=== PATIENT | male | born 1955 | race Caucasian/White ===

== ENCOUNTER 2024-12-30 21:56 | Emergency (ER) | payer MEDICARE, BC, SELFPAY ==
[2024-12-30 21:57] VITALS: BMI 26.1
[2024-12-30 23:39] VITALS: BP 165/91; PULSE 73; RESP 18; TEMP 36.5; O2SAT 98
--- NOTE | 2024-12-30 23:43 | XR_ITS ---
Examination: CT abdomen and pelvis without contrast. Coronal 3-D reconstructions. Sagittal 2-D reconstructions. Date and time of exam:December 31, 2024 0001 hrs. Indications: Left lower abdominal pain and vomiting today CTDI: vol (mGy): 9.26 DLP: (mGycm): 598 Technique: Axial images of the abdomen have been obtained, 3 mm slice thickness Intravenous contrast material has not been administered. Low dose protocols were performed. One or more of the following dose reduction techniques were used; automated exposure control, adjustment of the mA and/or KV according to patient size, use of iterative reconstruction technique. Findings: 13 mm left lobe liver lesion Contracted gallbladder No splenic or pancreatic mass Mild nodular thickening right adrenal gland Moderate renal parenchymal scar formation Mild left hydronephrosis secondary to 5 mm distal left ureteral calculus Aorta normal size Normal appendix No bowel obstruction Normal seminal vesicles Transverse prostate dimension 4.2 cm No bladder mass Diffuse [id number] lumbar disc narrowing Impression: 13 mm left lobe liver lesion, recommend MRI abdomen liver follow-up pre and postcontrast Mild right hydronephrosis, 5 mm distal left ureteral calculus
--- NOTE | 2024-12-30 23:44 | PD.EDRME ---
Rapid Medical Screening Exam RME Arrival date/time: 12/30/24 21:56 69-year-old male presents emergency department complaining of left lower quadrant pain with vomiting that started earlier today. Chief Complaint: Abdominal Pain Time Seen by Provider: 12/30/24 22:57 Vital signs: Vital Signs Temperature 97.7 F 12/30/24 23:39 Pulse Rate 73 12/30/24 23:39 Respiratory Rate 18 12/30/24 23:39 Blood Pressure 165/91 H 12/30/24 23:39 Pulse Oximetry (%) 98 12/30/24 23:39 Oxygen Delivery Method Room Air 12/30/24 23:39 Vital signs reviewed by provider: Yes
[2024-12-30] MEDS: ONDANSETRON ODT 4 MG TABRAP PO (23:55)
[2024-12-30] MEDS: KETOROLAC INJ 60 MG/2 ML VIAL 30 MG IM (23:55)
[2024-12-30 23:59] LABS: Basophils # (Auto) 0.1 Thou/mm3 (0.0-0.2); Basophils % (Auto) 1 % (0-2.5); Eosinophils # (Auto) 0.3 Thou/mm3 (0.0-0.5); Eosinophils % (Auto) 2 % (0-10); Hematocrit 41.4 % (41.0-53.0); Hemoglobin 13.9 g/dL (13.5-16.0); Immature Granulocytes % (Auto) 1 % (0-0); Immature Granulocytes Auto 0.08 Thou/mm3 (0.00-0.00); Lymphocytes # (Auto) 1.7 Thou/mm3 (1.0-4.8); Lymphocytes % (Auto) 12 % (10-50); Mean Corpuscular HGB Conc 33.6 g/dl (31.0-37.0); Mean Corpuscular Hemoglobin 30.5 pg (25.0-35.0); Mean Corpuscular Volume 91 fL (80-100); Monocytes % (Auto) 7 % (0-12); Neutrophils # (Auto) 11.8 Thou/mm3 (1.8-7.7); Neutrophils % (Auto) 79 % (37-80); Nucleated Red Blood Cell % 0 /100 WBC (0); Platelet Count 223 Thou/mm3 (140-440); RDW Standard Deviation 42.6 fL (35.1-43.9); Red Blood Count 4.55 Miln/mm3 (4.50-5.90)
[2024-12-31 00:43] LABS: Alanine Aminotransferase 27 U/L (10-49); Albumin, Serum 4.4 gm/dL (3.4-4.8); Albumin/Globulin Ratio 1.8 (1.2-2.2); Alkaline Phosphatase 65 U/L (46-116); Anion Gap 9 (7-16); Aspartate Amino Transferase 20 U/L (0-34); BUN/Creatinine Ratio 16 Ratio (12-20); Bilirubin,Total 0.3 mg/dL (0.3-1.2); Blood Urea Nitrogen 26 mg/dL (9-23); Calcium 10.2 mg/dL (8.3-10.6); Calcium (Corrected) 10.2 mg/dL (8.5-10.1); Carbon Dioxide 25.2 mMol/L (20.0-31.0); Chloride 111 mMol/L (98-107); Creatinine (Component) 1.6 mg/dL (0.6-1.3); Estimated Creatinine Clearance 54.1 mL/min (>60); Globulin 2.5 gm/dL (2.3-3.5); Glucose 163 mg/dL (74-106); Lipase 58 U/L (12-53); Magnesium 2.2 mg/dL (1.6-2.6); Osmolality,Calculated 297 (275-295); Potassium 4.3 mMol/L (3.4-5.1); Sodium 145 mMol/L (136-145); Total Protein 6.9 gm/dL (5.7-8.2); eGFR 46 See Note
--- NOTE | 2024-12-31 00:47 | PRELIM_ITS ---
CT scan of the abdomen and pelvis without intravenous contrast (axial sections with sagittal and coronal reformats) December 31, 2024 at 0001 hours Clinical History: Left lower quadrant pain with vomiting. Comparison: None. Findings: The lung bases are clear. The gallbladder, pancreas, spleen, and adrenals are unremarkable on this noncontrast study. Hypodense lesion in the left liver lobe measures 1.2 cm. Left distal ureteral stone measuring 0.5 cm, the stone is not visible on the family service counselor image, the stone is about 2.0 cm from the UVJ, mild left hydroureteronephrosis. Nonobstructing left kidney stone. No evidence of bowel obstruction. The appendix is within normal limits. There is no mesenteric or retroperitoneal adenopathy. The urinary bladder is unremarkable. There is no free fluid or free air. Degenerative changes of the imaged portions of the spine. No acute fractures. Vascular calcifications. Diverticulosis of the colon. Impression: 1. Left ureter stone associated with hydroureteronephrosis. 2. Nonobstructing left nephrolithiasis. 3. Hypodense liver lesion, consider follow-up with MRI for characterization. Report Electronically Signed By: Gino Valencia 12/31/2024 12:46:30 AM [EST]
--- NOTE | 2024-12-31 01:34 | PD.EDABDPN ---
ED Abdominal Pain RME/HPI General Chief Complaint: Abdominal Pain Stated complaint: LLQ PAIN X2DAYS/ VOMITING Time seen by provider: 12/30/24 22:57 Arrival date/time: 12/30/24 21:56 RME / HPI RME / HPI narrative: 12/30/24 21:56 69-year-old male presents emergency department complaining of left lower quadrant pain with vomiting that started earlier today. ------- Dr. Mendoza?s Main ED Evaluation: 69yo male presents to the ED for a chief complaint of LLQ pain x today. No radiation or migration. Patient states he started having severe LLQ pain tonight, reporting he's had multiple associated nonbloody emetic episodes, so he came in for evaluation. He denies any fever, chills, back pain, hematuria, diarrhea, constipation or any other associated symptoms. He denies any history of similar symptoms. Denies any history of kidney stones. No known allergies. Related Data Home Medications ?Medication ?Instructions ?Recorded ?Confirmed aspirin 325 mg tablet 325 mg PO QDAY 07/28/24 07/28/24 atorvastatin 10 mg tablet 20 mg PO QDAY 07/28/24 07/28/24 bupropion HCl 300 mg 24 hr tablet, 300 mg PO QDAY 07/28/24 07/28/24 extended release escitalopram oxalate 10 mg tablet 15 mg PO QDAY 07/28/24 07/28/24 evolocumab 420 mg/3.5 mL 420 mg subcut QMONTH 07/28/24 07/28/24 subcutaneous wearable injector (Repatha Pushtronex) finasteride 5 mg tablet 5 mg PO QDAY 07/28/24 07/28/24 Previous Rx's ?Medication ?Instructions ?Recorded hydrocodone 5 mg-acetaminophen 325 1 tab PO Q4H PRN pain #14 tabs 12/31/24 mg tablet ibuprofen 600 mg tablet 600 mg PO Q6H PRN pain 5 days #20 12/31/24 tabs ondansetron 4 mg disintegrating 4 mg PO Q6H PRN nausea and 12/31/24 tablet vomiting #14 tabs Allergies Allergy/AdvReac Type Severity Reaction Status Date / Time No Known Allergies Allergy Verified 07/28/24 07:54 Review of Systems Review of Systems Systems Reviewed: All systems reviewed, normal except as documented Past Medical History Past Medical History NEUROLOGIC: Negative Neurological Disorders or Seizures CARDIAC: Positive Cardiac Disorders, Myocardial Infarction and Hypercholesterolemia; Negative Congestive Heart Failure RESPIRATORY: Negative Chronic Obstructive Pulmonary Disease (COPD) GASTROINTESTINAL: Positive Gastrointestinal Disorders GENITOURINARY: Negative Genitourinary Disorders or Renal Disease MUSCULOSKELETAL: Negative Musculoskeletal Disorders ENDOCRINE: Negative Endocrine Disorders, Diabetes Mellitus Type 1 or Diabetes Mellitus Type 2 HEMATOLOGIC: Negative Anemia or Clotting Problems PSYCHO/SOCIAL: Positive Depression OTHER HISTORY: Positive Chicken Pox; Negative Blood Transfusions, Anesthesia Reactions or Cancer Surgical History SURGICAL: Positive Eye Surgery (left eye orbital) Social History SMOKING STATUS: Never smoker ED Exam Narrative Physical exam: GENERAL APPEARANCE: alert and oriented x 4, well-developed, well-nourished, no acute distress VITALS: All vitals were reviewed and the pulse ox is 98% on room air, which is normal according to my interpretation. HEENT: Normocephalic, atraumatic; pupils equal, round, reactive to light; EOMI; mucous membranes pink, moist; oropharynx clear NECK: Supple LUNGS: CTABL; no wheezes, no rales, no rhonchi HEART: Regular rate, regular rhythm; normal S1, S2; no murmurs ABDOMEN: non distended; normal BS; soft, LLQ tenderness, no guarding, no rebound; no masses, no organomegaly, no hernia BACK: severe left CVA tenderness EXTREMITIES: atraumatic; no edema NEUROLOGIC: awake; alert and oriented x4; cranial nerves II-XII grossly intact; no focal sensory or motor deficits PSYCHIATRIC: appropriate mood and affect SKIN: warm, dry, normal color; no rashes Course Quality Measures none Orders Category Date Time Status CT abdomen pelvis wo con Stat Exams 12/30/24 23:43 Completed CBC Stat Lab 12/30/24 23:47 Completed CMP [Comprehensive Metabolic Panel] Stat Lab 12/30/24 23:47 Completed Lipase Stat Lab 12/30/24 23:47 Completed Magnesium Stat Lab 12/30/24 23:47 Completed Acetaminophen Tab [Tylenol ES Tab] Med 12/31/24 01:35 Discontinued 1,000 mg PO X1 ONE HYDROmorphone INJ [Dilaudid Inj] Med 12/31/24 01:35 Discontinued 1 mg IM X1 ONE Ketorolac Inj [Toradol Inj] Med 12/30/24 23:44 Discontinued 30 mg IM X1 ONE Ondansetron Odt [Zofran Odt] Med 12/30/24 23:43 Discontinued 4 mg PO X1 ONE Vital Signs Vital signs: Vital Signs Temperature 97.7 F 12/30/24 23:39 Pulse Rate 73 12/30/24 23:39 Respiratory Rate 18 12/30/24 23:39 Blood Pressure 165/91 H 12/30/24 23:39 Pulse Oximetry (%) 98 12/30/24 23:39 Oxygen Delivery Method Room Air 12/30/24 23:39 Abdominal Pain MDM MDM Narrative MDM Narrative:: Scribe Attestation: 12/31/24 - Maddison Gracia am scribing for and in the presence of Dr. Mendoza. Patient data External records reviewed:: [facility] previous records (Per chart review, patient has no previous ED visits to this facility.) Clinical information provided by:: patient Social determinants that could affect healthcare access:: none Patient has the following chronic illnesses:: HLD How is presenting disease/condition affected by chronic disease/condition?: uneffected by Evaluation data The following diagnostics were reviewed and interpreted by me:: lab results and radiology exam(s) Lab and/or radiology exams considered but not ordered:: none Interpretation Summary: WBC count is elevated 15.0, Creatinine is 1.6, Glucose is 163, Lipase is 58, according to my interpretation. ------- [facility] Preliminary Report Draft Patient: STACY MONTOYA. Record#: [id number] Birthdate: 1955 Age/Sex: 69 / M Location: [facility] Attending Dr: Ordering Physician: Date of Service: Procedure(s): Accession Number(s): cc: ~ CT scan of the abdomen and pelvis without intravenous contrast (axial sections with sagittal and coronal reformats) December 31, 2024 at 0001 hours Clinical History: Left lower quadrant pain with vomiting. Comparison: None. Findings: The lung bases are clear. The gallbladder, pancreas, spleen, and adrenals are unremarkable on this noncontrast study. Hypodense lesion in the left liver lobe measures 1.2 cm. Left distal ureteral stone measuring 0.5 cm, the stone is not visible on the rural carrier image, the stone is about 2.0 cm from the UVJ, mild left hydroureteronephrosis. Nonobstructing left kidney stone. No evidence of bowel obstruction. The appendix is within normal limits. There is no mesenteric or retroperitoneal adenopathy. The urinary bladder is unremarkable. There is no free fluid or free air. Degenerative changes of the imaged portions of the spine. No acute fractures. Vascular calcifications. Diverticulosis of the colon. Impression: 1. Left ureter stone associated with hydroureteronephrosis. 2. Nonobstructing left nephrolithiasis. 3. Hypodense liver lesion, consider follow-up with MRI for characterization. Report Electronically Signed By: Gino Valencia 12/31/2024 12:46:30 AM Medications / Prescriptions Medications or Prescriptions considered but not ordered:: none Medication administrations:: Medication Administration History Discontinued Medications Acetaminophen (Acetaminophen 500 Mg Tablet) 1,000 mg PO X1 ONE Stop: 12/31/24 01:36 Last Admin: 12/31/24 01:52 Dose: 1,000 mg Documented By: SE Hydromorphone HCl (Hydromorphone Inj 2 Mg/Ml Vial) 1 mg IM X1 ONE Stop: 12/31/24 01:36 Last Admin: 12/31/24 01:53 Dose: 1 mg Documented By: SE Ketorolac Tromethamine (Ketorolac Inj 60 Mg/2 Ml Vial) 30 mg IM X1 ONE Stop: 12/30/24 23:45 Last Admin: 12/30/24 23:55 Dose: 30 mg Documented By: KG Ondansetron HCl (Ondansetron Odt 4 Mg Tabrap) 4 mg PO X1 ONE; Protocol Stop: 12/30/24 23:44 Last Admin: 12/30/24 23:55 Dose: 4 mg Documented By: KG see above Consultations Consultation(s) initiated? (list below): No Diagnosis Differential diagnosis abdominal pain: diverticulitis and other (kidney stone, pyelonephritis, musculoskeletal pain) Most likely diagnosis given after review of the tests above:: see below Admission Indicated Admission indicated?: not indicated Explain why admission is indicated or not indicated:: No criteria for admission. Admission Request Was there a request for admission?: No Disposition Plan Disposition Plan: Discharge Discharge Attestation Discharge Attestation: The patient and all family members were given an opportunity to ask questions and understood the discharge instructions. Discharge instructions specifically effects, indications for sooner follow up or return to the emergency department, and the expected course of current diagnosis. Patient condition: Stable Discharge Plan Plan Patient Disposition: HOME (Self Care) Disposition Comment: Stable for discharge Patient condition on transfer: Stable Prescriptions/Referrals Prescriptions/Med Rec: New ibuprofen 600 mg tablet 600 mg PO Q6H PRN (Reason: pain) 5 Days Qty: 20 0RF hydrocodone-acetaminophen 5-325 mg tablet 1 tab PO Q4H MDD 6 tabs PRN (Reason: pain) Qty: 14 0RF ondansetron 4 mg tablet,disintegrating 4 mg PO Q6H PRN (Reason: nausea and vomiting) Qty: 14 0RF No Action atorvastatin 10 mg tablet 20 mg PO QDAY Patient Comments: TAKE 1 TABLET BY MOUTH EVERY DAY aspirin 325 mg Tablet 325 mg PO QDAY finasteride 5 mg tablet 5 mg PO QDAY Patient Comments: TAKE 1 TABLET BY MOUTH EVERY DAY escitalopram oxalate 10 mg tablet 15 mg PO QDAY Patient Comments: TAKE 1 TABLET BY MOUTH EVERY DAY IN THE MORNING bupropion HCl 300 mg tablet extended release 24 hr 300 mg PO QDAY Patient Comments: TAKE 1 TABLET BY MOUTH EVERY DAY IN THE MORNING Repatha Pushtronex 420 mg/3.5 mL wearable injector 420 mg SUBCUT QMONTH Patient Comments: INJECT 420 MG UNDER THE SKIN ONCE A MONTH 84 Referrals: Marquis Reich [Primary Care Provider] - In 1 week Problem List Clinical Impression: Renal colic Patient/Caregiver Discharge Instructions Discharge Activity: activity as tolerated Education Materials: Anatomy of the Male Urinary Tract, ED Kidney Stone w/ Colic Additional Instructions: Please return to the emergency department if you have any worsening or any further medical problems. Otherwise you should follow-up with your primary care doctor within the next several days. Please mention to your primary care doctor that the emergency doctor said you should follow-up with a urologist within the next week or so Please remember that if your pain gets too severe at home or if you are worsening that you are more than welcome to return to the ER Print Language: Pakistani Stand Alone Forms: Bridgette Award Info., Patient Portal Info Letter
[2024-12-31] MEDS: ACETAMINOPHEN 500 MG TABLET 1000 MG PO (01:52)
[2024-12-31] MEDS: HYDROmorphone INJ 2 MG/ML VIAL 1 MG IM (01:53)
== END 2024-12-31 02:07 | disposition home or self-care (01) ==
PROVIDERS: Emergency Provider Emergency Medicine; PCP Internal Medicine
DX: N23 Unspecified renal colic (principal)
CPT/HCPCS: 36415; 74176; 80053; 81001; 83690; 83735; 85025; 96372; 99284; J1885; J3490; Q0162; A9270

== ENCOUNTER → 2025-01-01 | Outpatient (CLI) | payer MEDICARE, BC, SELFPAY | END | disposition home or self-care (01) | LOC: SLDO 15:16 | PROVIDERS: PCP Family Medicine; Referring Provider Family Medicine; Visit Provider Family Medicine | DX: N39.0 Urinary tract infection, site not specified (principal) | CPT/HCPCS: 87086 ==

== ENCOUNTER → 2025-01-22 | Outpatient (CLI) | payer MEDICARE, BC, SELFPAY ==
[2025-01-22 15:23] LABS: Alanine Aminotransferase 31 U/L (10-49); Albumin, Serum 4.4 gm/dL (3.4-4.8); Albumin/Globulin Ratio 2.2 (1.2-2.2); Alkaline Phosphatase 58 U/L (46-116); Anion Gap 9 (7-16); Aspartate Amino Transferase 10 U/L (0-34); BUN/Creatinine Ratio 16 Ratio (12-20); Bilirubin,Total 0.4 mg/dL (0.3-1.2); Blood Urea Nitrogen 22 mg/dL (9-23); Calcium 9.6 mg/dL (8.3-10.6); Calcium (Corrected) 9.6 mg/dL (8.5-10.1); Carbon Dioxide 27.6 mMol/L (20.0-31.0); Chloride 105 mMol/L (98-107); Creatinine (Component) 1.4 mg/dL (0.6-1.3); Glucose 93 mg/dL (74-106); Osmolality,Calculated 286 (275-295); Potassium 4.5 mMol/L (3.4-5.1); Sodium 142 mMol/L (136-145); Total Protein 6.4 gm/dL (5.7-8.2); eGFR 54 See Note
== END | disposition home or self-care (01) ==
LOC: COPL 13:52
PROVIDERS: PCP Nurse Practitioner Family; Referring Provider Nurse Practitioner Family; Visit Provider Nurse Practitioner Family
DX: N20.1 Calculus of ureter (principal); R93.2 Abnormal findings on diagnostic imaging of liver and biliary tract
CPT/HCPCS: 36415; 80053

== ENCOUNTER → 2025-02-10 | Outpatient (CLI) | payer MEDICARE, BC, SELFPAY ==
--- NOTE | 2025-02-10 09:00 | XR_ITS ---
Examination: MRI abdomen with intravenous contrast. MRI abdomen without intravenous contrast. Date and time of exam: February 10, 2025 1014 hours INDICATIONS: Left-sided abdominal pain, 13 mm left lobe liver lesion on CT abdomen study December 31, 2024 Technique: Multiple axial, sagittal and coronal sections of the abdomen obtained. Transverse images, TR 6020, TE 107. T1 weighted transverse images, TR 582, TE 9.5. T2-weighted sagittal images, TR 4000, TE 105. T2-weighted sagittal images, TR 4000, TE 5. Coronal images, TR 4210, TE 107. Axial and coronal images are obtained post 3 cc intravenous injection, gadolinium. Findings: 11 mm left lobe liver lesion with increased signal on the precontrast T2-weighted images Postcontrast images demonstrate no abnormal enhancement of this liver mass No gallstones No pancreatic or adrenal mass No current hydronephrosis Aorta normal size IMPRESSION: 11 mm nonenhancing left lobe liver lesion, consider liver cyst, hemangioma Recommend 6 month follow-up hepatic sonography
== END | disposition home or self-care (01) ==
LOC: SMRI 08:25
PROVIDERS: Referring Provider Student in an Organized Health Care Education/Training Program; Visit Provider Student in an Organized Health Care Education/Training Program
DX: K76.9 Liver disease, unspecified (principal)
CPT/HCPCS: 74183; A9579

== ENCOUNTER → 2025-02-13 | Outpatient (CLI) | payer MEDICARE, BC, SELFPAY ==
[2025-02-13 07:49] LABS: Collection Type, Urine Clean Catch; Squamous Epithelial Cell,Urine 0 /hpf (0-5)
[2025-02-13 08:33] LABS: Basophils # (Auto) 0.1 Thou/mm3 (0.0-0.2); Basophils % (Auto) 1 % (0-2.5); Eosinophils # (Auto) 0.3 Thou/mm3 (0.0-0.5); Eosinophils % (Auto) 7 % (0-10); Hematocrit 44.1 % (41.0-53.0); Hemoglobin 14.5 g/dL (13.5-16.0); Immature Granulocytes % (Auto) 0 % (0-0); Immature Granulocytes Auto 0.02 Thou/mm3 (0.00-0.00); Lymphocytes # (Auto) 1.5 Thou/mm3 (1.0-4.8); Lymphocytes % (Auto) 29 % (10-50); Mean Corpuscular HGB Conc 32.9 g/dl (31.0-37.0); Mean Corpuscular Hemoglobin 30.1 pg (25.0-35.0); Mean Corpuscular Volume 92 fL (80-100); Monocytes # (Auto) 0.5 Thou/mm3 (0.0-0.8); Monocytes % (Auto) 10 % (0-12); Neutrophils # (Auto) 2.6 Thou/mm3 (1.8-7.7); Neutrophils % (Auto) 53 % (37-80); Nucleated Red Blood Cell % 0 /100 WBC (0); Platelet Count 246 Thou/mm3 (140-440); RDW Standard Deviation 42.9 fL (35.1-43.9); Red Blood Count 4.82 Miln/mm3 (4.50-5.90)
[2025-02-13 08:39] LABS: Bilirubin,Urine Negative (Negative); Blood,Urine Negative (Negative); Clarity,Urine Clear (Clear/Hazy); Color,Urine Lt-Yellow (Lt Yel-Yel); Glucose, Urine Negative (Negative); Ketones,Urine Negative (Negative); Leukocyte Esterase,Urine Negative (Negative); Nitrite,Urine Negative (Negative); Protein,Urine Negative (Neg - Trace); RBC,Urine 2 /hpf (0-3); Specific Gravity,Urine 1.018 (1.001-1.035); Urobilinogen,Urine Negative mg/dL (0.0-1.0); WBC,Urine 1 /hpf (0-5)
[2025-02-13 08:43] LABS: Albumin, Serum 4.4 gm/dL (3.4-4.8); Anion Gap 8 (7-16); BUN/Creatinine Ratio 13 Ratio (12-20); Blood Urea Nitrogen 19 mg/dL (9-23); Calcium 9.3 mg/dL (8.3-10.6); Calcium (Corrected) 9.3 mg/dL (8.5-10.1); Carbon Dioxide 28.1 mMol/L (20.0-31.0); Chloride 107 mMol/L (98-107); Creatinine (Component) 1.5 mg/dL (0.6-1.3); Glucose 98 mg/dL (74-106); Osmolality,Calculated 287 (275-295); Phosphorous 2.7 mg/dL (2.4-5.1); Potassium 4.3 mMol/L (3.4-5.1); Sodium 143 mMol/L (136-145); eGFR 50 See Note
[2025-02-13 08:50] LABS: Creatinine MALB Rnd Ur 122 mg/dL (30-125); Microalbumin Creat Ratio 7 mg/gCrea (<30); Microalbumin, Random Urine 9 mg/L (0-300)
[2025-02-13 08:50] LABS: Vitamin D 25 Hydroxy Total 49.6 ng/mL (7.3-40.2)
[2025-02-13 08:58] LABS: Parathyroid Hormone Intact 34.8 pg/ml (18.5-88.0)
== END | disposition home or self-care (01) ==
LOC: COPL 06:51
PROVIDERS: PCP Student in an Organized Health Care Education/Training Program; Referring Provider Internal Medicine; Visit Provider Internal Medicine
DX: N18.30 Chronic kidney disease, stage 3 unspecified (principal); E78.5 Hyperlipidemia, unspecified; N20.0 Calculus of kidney; E55.9 Vitamin D deficiency, unspecified
CPT/HCPCS: 36415; 80069; 81001; 82043; 82306; 82570; 83970; 85025

== ENCOUNTER → 2025-02-20 | Outpatient (CLI) | payer MEDICARE, BC, SELFPAY ==
--- NOTE | 2025-02-20 13:00 | XR_ITS ---
Examination: Retroperitoneal ultrasound, complete Technique: Multiple high resolution grayscale images of the retroperitoneum obtained, including kidneys and bladder. Exam date and time:February 20, 2025 1310 hrs. Indications: Acute kidney failure on laboratory examination February 13, 2025 Findings: Right kidney 12.6 cm renal cortex 1.7 cm Left kidney 11.5 cm cortex 2.0 cm Moderate bilateral parenchymal scar formation No bladder mass or bladder calculi Bladder prevoid volume 653 cc No prostatomegaly no prostate nodules Impression: Moderate bilateral renal parenchymal scar formation No hydronephrosis
== END | disposition home or self-care (01) ==
LOC: CDIM 12:39
PROVIDERS: PCP Family Medicine; Referring Provider Internal Medicine; Visit Provider Internal Medicine
DX: N28.89 Other specified disorders of kidney and ureter (principal)
CPT/HCPCS: 76770

== ENCOUNTER → 2025-04-30 | Outpatient (BNVA) | payer MEDICARE, BC, SELFPAY | END | disposition home or self-care (01) | PROVIDERS: PCP Family Medicine; Referring Provider Family Medicine; Visit Provider Urology | DX: N40.1 Benign prostatic hyperplasia with lower urinary tract symptoms (principal); N13.8 Other obstructive and reflux uropathy; R35.0 Frequency of micturition; R39.198 Other difficulties with micturition; N18.2 Chronic kidney disease, stage 2 (mild); E66.9 Obesity, unspecified; Z68.25 Body mass index [BMI] 25.0-25.9, adult; E78.00 Pure hypercholesterolemia, unspecified; I21.9 Acute myocardial infarction, unspecified | CPT/HCPCS: 81003; 99203; G0463 ==

== ENCOUNTER → 2025-04-30 | Outpatient (CLI) | payer MEDICARE, BC, SELFPAY ==
[2025-04-30 13:21] LABS: Prostate Specific Antigen 0.98 ng/mL (0-4.00)
== END | disposition home or self-care (01) ==
PROVIDERS: PCP Student in an Organized Health Care Education/Training Program; Referring Provider Urology; Visit Provider Urology
DX: R97.20 Elevated prostate specific antigen [PSA] (principal)
CPT/HCPCS: 36415; 84153

== ENCOUNTER → 2025-06-11 | Outpatient (CLI) | payer MEDICARE, BC, SELFPAY ==
[2025-06-11 07:59] LABS: Collection Type, Urine Clean Catch; Squamous Epithelial Cell,Urine 0 /hpf (0-5)
[2025-06-11 09:05] LABS: Bilirubin,Urine Negative (Negative); Blood,Urine Negative (Negative); Clarity,Urine Clear (Clear/Hazy); Color,Urine Yellow (Lt Yel-Yel); Glucose, Urine Negative (Negative); Ketones,Urine Negative (Negative); Leukocyte Esterase,Urine Negative (Negative); Nitrite,Urine Negative (Negative); PH,Urine 6.0 (5.0-7.0); Protein,Urine Negative (Neg - Trace); RBC,Urine 5 /hpf (0-3); Specific Gravity,Urine 1.028 (1.001-1.035); Urobilinogen,Urine Negative mg/dL (0.0-1.0); WBC,Urine 3 /hpf (0-5)
[2025-06-11 09:08] LABS: Albumin, Serum 4.3 gm/dL (3.4-4.8); Anion Gap 8 (7-16); BUN/Creatinine Ratio 13 Ratio (12-20); Blood Urea Nitrogen 20 mg/dL (9-23); Calcium 9.0 mg/dL (8.3-10.6); Calcium (Corrected) 9.0 mg/dL (8.5-10.1); Carbon Dioxide 27.2 mMol/L (20.0-31.0); Chloride 108 mMol/L (98-107); Creatinine (Component) 1.5 mg/dL (0.6-1.3); Glucose 100 mg/dL (74-106); Osmolality,Calculated 287 (275-295); Phosphorous 2.4 mg/dL (2.4-5.1); Potassium 4.2 mMol/L (3.4-5.1); Sodium 143 mMol/L (136-145); eGFR 49 See Note
== END | disposition home or self-care (01) ==
LOC: COPL 07:06
PROVIDERS: PCP Family Medicine; Referring Provider Internal Medicine; Visit Provider Internal Medicine
DX: I12.9 Hypertensive chronic kidney disease with stage 1 through stage 4 chronic kidney disease, or unspecified chronic kidney disease (principal); N18.30 Chronic kidney disease, stage 3 unspecified
CPT/HCPCS: 36415; 80069; 81001

== ENCOUNTER → 2025-08-06 | Outpatient (BNVA) | payer MEDICARE, BC, SELFPAY | END | disposition home or self-care (01) | PROVIDERS: PCP Student in an Organized Health Care Education/Training Program; Referring Provider Student in an Organized Health Care Education/Training Program; Visit Provider Urology | DX: N40.1 Benign prostatic hyperplasia with lower urinary tract symptoms (principal); R39.12 Poor urinary stream | CPT/HCPCS: 51741; 51798 ==

== ENCOUNTER → 2025-08-11 | Outpatient (BNVA) | payer MEDICARE, BC, SELFPAY | END | disposition home or self-care (01) | PROVIDERS: PCP Student in an Organized Health Care Education/Training Program; Referring Provider Student in an Organized Health Care Education/Training Program; Visit Provider Urology | DX: N40.1 Benign prostatic hyperplasia with lower urinary tract symptoms (principal); N13.8 Other obstructive and reflux uropathy; E78.00 Pure hypercholesterolemia, unspecified; I25.2 Old myocardial infarction | CPT/HCPCS: 76872 ==

== ENCOUNTER → 2025-09-16 | Outpatient (CLI) | payer MEDICARE, BC, SELFPAY ==
--- NOTE | 2025-09-16 11:45 | XR_ITS ---
Examination: Abdomen sonogram, Limited Date and time of exam: 09/16/2025, 11:40 a.m. INDICATION: Follow-up for nonenhancing left lower lobe lesion. COMPARISON: Abdominal MRI 02/10/2025. CT abdomen and pelvis 12/31/2024. Technique: Real-time painting scale transabdominal sonographic images of the upper abdomen obtained. Findings: The liver is measured at 17 cm in length. Demonstrates smooth contours and diffusely increased echotexture which is nonspecific but could represent hepatic steatosis. Redemonstration of a small cyst in the lateral segment of the left hepatic lobe, localizing to segment 2 as correlated with prior MRI and CT. This cyst is measured at 1.0 x 0.6 x 0.8 cm on this exam. MRI shows that there are very thin septations within the cyst which are not as well appreciated on this ultrasound. The MRI also shows 2 very small hemangiomas in the anterior portions of the medial and lateral segments of the left hepatic lobe that are not evident on the provided images. Color Doppler demonstrates patency of the main portal vein with normal hepatopetal flow. There is no evidence for abnormal bile duct dilatation. The common bile duct is measured at 4 mm in caliber. There is no evidence for gallstones, sludge, concerning gallbladder wall thickening or para cholecystic fluid. IMPRESSION: Redemonstration of small benign cyst in the lateral segment the left hepatic lobe. Probable mild diffuse hepatic steatosis. Ancillary findings/comments as above.
== END | disposition home or self-care (01) ==
PROVIDERS: PCP Family Medicine; Referring Provider Student in an Organized Health Care Education/Training Program; Visit Provider Student in an Organized Health Care Education/Training Program
DX: K76.89 Other specified diseases of liver (principal)
CPT/HCPCS: 76705

== ENCOUNTER → 2025-11-09 | Outpatient (CLI) | payer MEDICARE, BC, SELFPAY ==
[2025-11-09 08:07] LABS: Collection Type, Urine Clean Catch
[2025-11-09 08:33] LABS: Basophils # (Auto) 0.1 Thou/mm3 (0.0-0.2); Basophils % (Auto) 1 % (0-2.5); Eosinophils # (Auto) 0.5 Thou/mm3 (0.0-0.5); Eosinophils % (Auto) 7 % (0-10); Hematocrit 43.4 % (41.0-53.0); Hemoglobin 14.5 g/dL (13.5-16.0); Immature Granulocytes Auto 0.03 Thou/mm3 (0.00-0.00); Lymphocytes # (Auto) 1.5 Thou/mm3 (1.0-4.8); Lymphocytes % (Auto) 24 % (10-50); Mean Corpuscular HGB Conc 33.4 g/dl (31.0-37.0); Mean Corpuscular Hemoglobin 31.0 pg (25.0-35.0); Mean Corpuscular Volume 93 fL (80-100); Monocytes # (Auto) 0.6 Thou/mm3 (0.0-0.8); Monocytes % (Auto) 9 % (0-12); Neutrophils # (Auto) 3.8 Thou/mm3 (1.8-7.7); Neutrophils % (Auto) 58 % (37-80); Nucleated Red Blood Cell # 0.00 Thou/mm3 (0.00-0.00); Nucleated Red Blood Cell % 0 /100 WBC (0); Platelet Count 237 Thou/mm3 (140-440); RDW Standard Deviation 44.2 fL (35.1-43.9); Red Blood Count 4.68 Miln/mm3 (4.50-5.90); White Blood Count 6.5 Thou/mm3 (3.8-10.6)
[2025-11-09 08:48] LABS: Creatinine MALB Rnd Ur 174 mg/dL (30-125); Microalbumin Creat Ratio 8 mg/gCrea (<30); Microalbumin, Random Urine 14 mg/L (0-300)
[2025-11-09 08:51] LABS: Parathyroid Hormone Intact 33.2 pg/ml (18.5-88.0)
[2025-11-09 08:56] LABS: Alanine Aminotransferase 24 U/L (10-49); Albumin, Serum 4.4 gm/dL (3.4-4.8); Alkaline Phosphatase 60 U/L (46-116); Anion Gap 9 (7-16); Aspartate Amino Transferase 22 U/L (0-34); BUN/Creatinine Ratio 9 Ratio (12-20); Bilirubin,Direct 0.2 mg/dL (0.0-0.3); Bilirubin,Total 0.5 mg/dL (0.3-1.2); Blood Urea Nitrogen 14 mg/dL (9-23); Calcium 9.2 mg/dL (8.3-10.6); Carbon Dioxide 27.6 mMol/L (20.0-31.0); Cardiac Risk Estimate 2.5 RATIO (4.0-6.7); Chloride 106 mMol/L (98-107); Cholesterol 133 mg/dL (132-200); Creatinine (Component) 1.6 mg/dL (0.6-1.3); Glucose 105 mg/dL (74-106); HDL Cholesterol 53 mg/dL (40-60); LDL Cholesterol,Calculated 54 mg/dL (0-130); Osmolality,Calculated 285 (275-295); Phosphorous 3.1 mg/dL (2.4-5.1); Potassium 4.8 mMol/L (3.4-5.1); Sodium 143 mMol/L (136-145); Total Protein 6.7 gm/dL (5.7-8.2); Triglycerides 132 mg/dL (30-150); eGFR 46 See Note
[2025-11-09 09:28] LABS: Bilirubin,Urine Negative (Negative); Blood,Urine Negative (Negative); Clarity,Urine Clear (Clear/Hazy); Color,Urine Yellow (Lt Yel-Yel); Glucose, Urine Negative (Negative); Ketones,Urine Negative (Negative); Leukocyte Esterase,Urine Negative (Negative); Nitrite,Urine Negative (Negative); PH,Urine 6.5 (5.0-7.0); Protein,Urine Trace (Neg - Trace); RBC,Urine 3 /hpf (0-3); Specific Gravity,Urine 1.022 (1.001-1.035); Squamous Epithelial Cell,Urine < 1 /hpf (0-5); Urobilinogen,Urine Negative mg/dL (0.0-1.0); WBC,Urine 1 /hpf (0-5)
== END | disposition home or self-care (01) ==
LOC: COPL 07:23
PROVIDERS: PCP Internal Medicine; Referring Provider Internal Medicine; Visit Provider Internal Medicine
DX: I12.9 Hypertensive chronic kidney disease with stage 1 through stage 4 chronic kidney disease, or unspecified chronic kidney disease (principal); N18.30 Chronic kidney disease, stage 3 unspecified; E78.5 Hyperlipidemia, unspecified
CPT/HCPCS: 36415; 80048; 80061; 80076; 81001; 82043; 82570; 83970; 84100; 85025